=== PATIENT | male | born 1985 | race Two or more races ===

== ENCOUNTER 2020-01-18 00:31 | Emergency (ER) | payer SELFPAY ==
[~2020-01-18] VITALS: Ht 172.7 cm; Wt 77.3 kg
[2020-01-18] MEDS ORDERED: PERTUSS(ACELL),DIPH,TET VAC/PF 0.5 ML VIAL IM ONE (01:30)
[2020-01-18] MEDS ORDERED: LIDOCAINE 1%/EPI 1:200,000/PF 10 ML VIAL INJ ONE (01:30)
[2020-01-18] MEDS ORDERED: BACITRACIN 0.9 GM PACKET OINTMENT TP ONE (02:15)
[2020-01-18 02:16] VITALS: BP 133/75
== END 2020-01-18 02:39 | disposition home or self-care (01) ==
LOC: EMS 00:31
DX: S01.81XA Laceration without foreign body of other part of head, initial encounter (principal); F14.90 Cocaine use, unspecified, uncomplicated; W22.8XXA Striking against or struck by other objects, initial encounter; Y93.89 Activity, other specified; Y92.89 Other specified places as the place of occurrence of the external cause; Y99.8 Other external cause status
CPT/HCPCS: 12052; 90471; 90715; 99284; J3490; 12051